=== PATIENT | male | born 2000 | race Two or more races ===

== ENCOUNTER 2023-05-17 22:10 | Emergency (ER) | payer MEDICAID ==
[~2023-05-17] VITALS: Ht 167.6 cm; Wt 95.3 kg
[2023-05-17] MEDS ORDERED: ONDANSETRON HCL/PF 4 MG/2 ML VIAL ONE (22:53)
[2023-05-17] MEDS ORDERED: TDAP [DIPH/PERTUSSIS/TET] 0.5 ML VIAL IM ONE (22:54)
[2023-05-17] MEDS ORDERED: MORPHINE SULFATE INJ 2 MG/ML DISP.SYRIN ONE ×2 (22:54→23:34)
[2023-05-17] MEDS ORDERED: LORAZEPAM INJ 2 MG/ML VIAL ONE (22:54)
[2023-05-17] MEDS ORDERED: [UNRECOGNIZED DRUG - OTHER] IV ONE (23:00)
[2023-05-17] MEDS: TDAP [DIPH/PERTUSSIS/TET] 0.5 ML VIAL IM ONE (23:07)
[2023-05-17] MEDS: IV NS 0.9% 1,000 ML BAG IV ONE (23:08)
[2023-05-17] MEDS: MORPHINE SULFATE INJ 2 MG/ML DISP.SYRIN IV ONE ×2 (23:08→23:35)
[2023-05-17] MEDS: LORAZEPAM INJ 2 MG/ML VIAL IV ONE (23:08)
[2023-05-17] MEDS: ONDANSETRON HCL/PF 4 MG/2 ML VIAL IVP ONE (23:09)
[2023-05-17 23:22] LABS: BASOPHILS # (AUTO) 0.2 K/uL (0.0-0.2); BASOPHILS % (AUTO) 1.2 % (0.0-2.0); EOSINOPHILS % (AUTO) 0.2 % (0.0-6.0); HEMATOCRIT 40 % (39-51); HEMOGLOBIN 13.1 g/dL (13.5-17.5); LYMPHOCYTES # (AUTO) 2.2 K/uL (0.8-4.8); LYMPHOCYTES % (AUTO) 15.8 % (20.0-44.0); MEAN CORPUSCULAR HEMOGLOBIN 27 PG (26.0-33.0); MEAN CORPUSCULAR HGB CONC 33 g/dl (31.0-36.0); MEAN CORPUSCULAR VOLUME 82 fL (80-96); MONOCYTES # (AUTO) 0.9 K/uL (0.1-1.30); MONOCYTES % (AUTO) 6.9 % (2.0-12.0); NEUTROPHILS # (AUTO) 10.4 K/uL (1.8-8.9); NEUTROPHILS % (AUTO) 75.9 % (43.0-81.0); PLATELET COUNT (AUTO) 208 K/uL (150-450); RED BLOOD CELL COUNT(AUTO) 4.92 MIL/uL (4.5-6.0); RED CELL DISTRIBUTION WIDTH 12.5 % (11.5-15.0); WHITE BLOOD COUNT (AUTO) 13.7 K/uL (4.3-11.0)
[2023-05-17 23:31] LABS: CALCIUM, SERUM 8.7 mg/dL (8.5-10.1); CREATININE 1.2 mg/dL (0.6-1.3); POTASSIUM 3.3 mmol/L (3.5-5.1)
[2023-05-17 23:41] LABS: LACTIC ACID 1.2 mmol/L (0.4-2.0)
[2023-05-18] MEDS ORDERED: LORAZEPAM INJ 2 MG/ML VIAL ONE (00:06)
[2023-05-18] MEDS: LORAZEPAM INJ 2 MG/ML VIAL IV ONE (00:08)
[2023-05-18] MEDS ORDERED: SULF1TAB48 PO (00:12)
[2023-05-18] MEDS ORDERED: CEPH500T PO (00:12)
[2023-05-18] MEDS ORDERED: HYDR-4275 PO (00:12)
[2023-05-18] MEDS ORDERED: HYDR-3972 PO ×2 (00:14→00:17)
[2023-05-18 00:27] VITALS: BP 128/77; TEMP 98.7; O2SAT 100
[2023-05-18] MEDS ORDERED: LIDOCAINE HCL/MPF 1% 30 ML VIAL IJ ONE (21:16)
== END 2023-05-18 00:28 | disposition home or self-care (01) ==
LOC: ER 22:14
DX: T63.311A Toxic effect of venom of black widow spider, accidental (unintentional), initial encounter (principal); L03.011 Cellulitis of right finger; Y92.89 Other specified places as the place of occurrence of the external cause
CPT/HCPCS: 99284; 96374; 96375; 96361; 90471; 90715; 85025; 80048; 83605; 36415; 96376; J2060 ×2; J2405; J7030; J2270 ×2; J3490

== ENCOUNTER 2024-03-17 17:07 | Emergency (ER) | payer MEDICAID ==
[~2024-03-17] VITALS: Ht 167.6 cm; Wt 74.4 kg
[~2024-03-17 17:07] MED LIST: CEPH500T PO; HYDR-3972 PO; SULF1TAB48 PO
[2024-03-17] MEDS ORDERED: HYDROCODONE/APAP 5/325MG TABLET ONE (17:48)
[2024-03-17] MEDS ORDERED: CEFTRIAXONE 1GM BAG (ER ONLY) 50 ML IV ONE (17:48)
[2024-03-17] MEDS ORDERED: SULFAMETH/TRIMETH 800/160 MG 1 UDTAB TABLET ONE (17:49)
[2024-03-17] MEDS ORDERED: IBUPROFEN 400 MG TABLET ONE (17:49)
[2024-03-17] MEDS: SULFAMETH/TRIMETH 800/160 MG 1 UDTAB TABLET PO ONE (17:50)
[2024-03-17] MEDS: HYDROCODONE/APAP 5/325MG TABLET PO ONE (17:50)
[2024-03-17] MEDS: IBUPROFEN 400 MG TABLET PO ONE (17:50)
[2024-03-17] MEDS: CEFTRIAXONE 1GM BAG (ER ONLY) 1 GM/50 ML PIGGYBACK IV ONE (17:55)
[2024-03-17] MEDS: CEFTRIAXONE 1 G VIAL IM ONE (17:57)
[2024-03-17 18:40] VITALS: BP 124/81; TEMP 98.9; O2SAT 98
== END 2024-03-17 18:40 | disposition home or self-care (01) ==
LOC: ER 17:07
DX: L03.114 Cellulitis of left upper limb (principal)
CPT/HCPCS: 99284; 96365; J0696